=== PATIENT | male | born 1935 | race Caucasian/White ===

== ENCOUNTER 2017-01-06 10:16 | Inpatient (IN) | payer MEDICARE, OTHER ==
[~2017-01-06] VITALS: Ht 182.9 cm; Wt 61.2 kg
[2017-01-06] MEDS ORDERED: ESCI10TA PO (10:28)
[2017-01-06] MEDS ORDERED: MEMA10TA PO (10:28)
[2017-01-06] MEDS ORDERED: DONE10TA44 PO (10:28)
[2017-01-06] MEDS ORDERED: LEVO25TA9 PO (10:28)
[2017-01-06] MEDS ORDERED: CHOL100045 PO (10:28)
[2017-01-06] MEDS ORDERED: TAMS0.4C34 PO (10:28)
--- NOTE | 2017-01-06 11:29 | NUR ---
Pt being admitted to tele with belongings list complete at this time as well family member left ER at this time with medications and W/C and cane.
[2017-01-06 11:38] LABS: BASOPHILS % (AUTO) 0.6 % (0.0-2.0); EOSINOPHILS # (AUTO) 0.1 K/uL (0.0-0.7); EOSINOPHILS % (AUTO) 1.4 % (0.0-7.0); HEMATOCRIT 45.2 % (40-50); HEMOGLOBIN 14.8 G/DL (14.0-18.0); LYMPHOCYTES # (AUTO) 1.6 K/UL (0.8-4.8); LYMPHOCYTES % (AUTO) 27.2 % (20.5-51.5); MEAN CORPUSCULAR HEMOGLOBIN 32.9 UUG (27.0-31.0); MEAN CORPUSCULAR HGB CONC 33 g/dL (32.0-37.0); MEAN CORPUSCULAR VOLUME 100.7 FL (82.0-92.0); MONOCYTES # (AUTO) 0.3 K/UL (0.1-1.30); MONOCYTES % (AUTO) 5.5 % (0.0-11.0); NEUTROPHILS # (AUTO) 3.9 K/UL (1.8-8.9); NEUTROPHILS % (AUTO) 65.3 % (38.5-71.5); PLATELET COUNT (AUTO) 279 K/UL (150-450); RED BLOOD CELL COUNT(AUTO) 4.49 MIL/UL (4.7-6.1); WHITE BLOOD COUNT (AUTO) 5.9 K/UL (4.0-11.2)
[2017-01-06 11:50] LABS: CARBON DIOXIDE 26 mmol/L (21-32); CHLORIDE 103 mmol/L (98-107); GLUCOSE 88 mg/dL (74-106); POTASSIUM 3.7 mmol/L (3.5-5.1); UREA NITROGEN, BLOOD 16 mg/dL (7-18)
[2017-01-06 11:51] LABS: ETHANOL < 3 MG/DL (0-0)
[2017-01-06 11:56] LABS: ALANINE AMINOTRANSFERASE 17 U/L (16-63); ALKALINE PHOSPHATASE 87 U/L (50-136); ASPARTATE AMINOTRANSFERASE 20 U/L (15-37); BILIRUBIN,DIRECT 0.1 mg/dL (0.0-0.2); BILIRUBIN,TOTAL 0.7 mg/dL (0.2-1.0); TOTAL PROTEIN, SERUM 7.6 g/dL (6.4-8.2)
--- NOTE | 2017-01-06 12:15 | NUR ---
RECEIVED PATIENT FROM ED BY LEX 81 YEARS OLD MALE WITH DX OF AMS TO ROOM 222 PLACED INTO BED FIXED AND MADE COMFORTABLE PATIENT IS ALERT TO SELF WITH CONFUSSION AND DISORIENTATION UNABLE TO ANSWER QUESTIONS CALLED HIS SON ORI AND LEFT A MESSAGE.CALLED DR DOIN SALDAÑA AND LEFT A MESSAGE FOR ADMISSION ORDERS.
[2017-01-06 12:18] VITALS: BP 110/60
[2017-01-06 12:30] LABS: THYROID STIMULATING HORMONE 2.682 mIU/mL (0.358-3.740)
[2017-01-06 12:36] LABS: ACETAMINOPHEN < 2.0 ug/mL (10-30)
[2017-01-06] MEDS ORDERED: Z GUARD REMEDY PASTE 57 GM TUBE TOP PRN (14:00)
[2017-01-06] MEDS ORDERED: ONDANSETRON 4 MG/2 ML VIAL IV PRN (14:00)
[2017-01-06] MEDS ORDERED: ACETAMINOPHEN 325 MG TABLET PO PRN (14:00)
--- NOTE | 2017-01-06 14:00 | NUR ---
PATIENT HAS POOR SAFETY AWARENESS PATIENT MOVED CLOSER TO THE STATION ROOM 212
[2017-01-06 15:02] VITALS: BP 132/76
[2017-01-06] MEDS: IV NS 1000 ML 1,000 ML IV PRN (15:12)
--- NOTE | 2017-01-06 16:00 | NUR ---
2 D ECHO COMPLETED AND EF IS 50% WILL CONTINUE TO OBSERVE
--- NOTE | 2017-01-06 17:42 | NUR ---
PATIENT PULLED OUT HIS HEPLOCK AND TELEMETRY MAYI WILL ATTEMPT TO REINSERT.
--- NOTE | 2017-01-06 18:19 | NUR ---
HEPLOCK REINSERTED TO HIS LEFT FOREARM WITH ONE ATTEMPT AND SECURED AND WRAPPED WITH KIRLIX. PATIENT IS CONFUSED AND DISORIENTED AT THIS TIME BED ALARM IS ON WILL CONTINUE TO OBSERVE.
--- NOTE | 2017-01-06 18:31 | NUR ---
PATIENT SEEN AND EXAMINED BY DR CAO WITH ORDER TO DISCONTINUE TELEMETRY AND NOTED.
--- NOTE | 2017-01-06 19:30 | NUR ---
RECEIVED PATIENT LAYING COMFORTABLY IN BED. HOB ELEVATED. NO ACUTE DISTRESS NOTED. NO C/O PAIN. PATIENT IS ALERT TO SELF ONLY. IVF INFUSING ON THE LEFT FA # 20 NS AT 75 MLS/HR. SAFETY INITIATED. CALL LIGHT WITHIN REACH. WILL CONTINUE TO MONITOR.
[2017-01-06 19:58] VITALS: BP 98/58
[2017-01-06] MEDS: TAMSULOSIN HCL 0.4 MG CAP.SR.24H PO SCH (20:07)
[2017-01-06] MEDS: MEMANTINE HCL 10 MG TABLET PO SCH (20:07)
[2017-01-06] MEDS: Z GUARD REMEDY PASTE 57 GM TUBE TOP SCH (20:07)
[2017-01-07 04:00] VITALS: BP 108/59
--- NOTE | 2017-01-07 05:44 | NUR ---
no changes t/o shift. no acute distress noted. patient remains alert to self only. left forearm ivf infusing at NS at 75 mls/hr. diaper changed 3 times, zguard applied. noted sacral redness and non blanchable heels. safety and comfort measures maintained t/o shift. all meds given as ordered. vital signs stable. all needs met.
[2017-01-07] MEDS: LEVOTHYROXINE SODIUM 25 MCG TABLET PO SCH (06:00)
[2017-01-07] MEDS: IV NS 1000 ML 1,000 ML IV PRN ×2 (06:20→20:04)
[2017-01-07 07:41] LABS: BASOPHILS % (AUTO) 1.1 % (0.0-2.0); EOSINOPHILS # (AUTO) 0.1 K/uL (0.0-0.7); EOSINOPHILS % (AUTO) 2.3 % (0.0-7.0); HEMATOCRIT 39.3 % (36.7-47.1); HEMOGLOBIN 13.3 g/dL (12.5-16.3); LYMPHOCYTES # (AUTO) 1.7 K/uL (20.0-40.0); MEAN CORPUSCULAR HEMOGLOBIN 34.2 uug (23.8-33.4); MEAN CORPUSCULAR HGB CONC 34 g/dL (32.5-36.3); MEAN CORPUSCULAR VOLUME 101.1 fL (73.0-96.2); MONOCYTES # (AUTO) 0.3 K/uL (2.0-10.0); MONOCYTES % (AUTO) 7.5 % (0.0-11.0); NEUTROPHILS # (AUTO) 2.2 K/uL (1.8-8.9); NEUTROPHILS % (AUTO) 50.1 % (38.5-71.5); PLATELET COUNT (AUTO) 251 K/uL (152-348); RED BLOOD CELL COUNT(AUTO) 3.89 MIL/uL (4.06-5.63)
--- NOTE | 2017-01-07 07:45 | NUR ---
PATIENT RECEIVED IN BED AWAKE ALERT AWARE BUT IS DISORIENTED TO EVENTS AND PLACE.VERBALLY RESPONDS WHEN SPOKEN TO BUT MOSTLY [place].VERY QUIET ALL NEEDS MUST BE ANTICIPATED AND SATISFIED.TOTALLY DEPENDENT FOR NURSES FOR ALL ADL.REMAIN ON IVF ORDERED WITH NO S/S OF INFILTERATION.BED ALARM IS IN NSE AT THIS TIME.MADE COMFORTABLE.
[2017-01-07 08:16] LABS: THYROID STIMULATING HORMONE 2.955 mIU/mL (0.358-3.740)
[2017-01-07 08:21] LABS: WHITE BLOOD COUNT (AUTO) 4.3 K/uL (3.6-10.2)
[2017-01-07] MEDS: Z GUARD REMEDY PASTE 57 GM TUBE TOP SCH ×2 (08:29→20:04)
[2017-01-07] MEDS: ESCITALOPRAM OXALATE 10 MG TABLET PO SCH (08:29)
[2017-01-07] MEDS: MEMANTINE HCL 10 MG TABLET PO SCH ×2 (08:29→20:03)
[2017-01-07] MEDS: CHOLECALCIFEROL 1,000 UNIT TABLET PO SCH (08:29)
[2017-01-07] MEDS: DONEPEZIL 10 MG TABLET PO SCH (08:29)
[2017-01-07 08:41] LABS: CHLORIDE 106 mmol/L (98-107); CHOLESTEROL 153 mg/dL (<200); GLUCOSE 71 mg/dL (74-106); HDL CHOLESTEROL 31 mg/dL (40-60); MAGNESIUM 2.1 mg/dL (1.8-2.4); PHOSPHOROUS 3.1 mg/dL (2.5-4.9); POTASSIUM 3.6 mmol/L (3.5-5.1); TRIGLYCERIDES 86 MG/DL (30-150); UREA NITROGEN, BLOOD 16 mg/dL (7-18)
[2017-01-07 08:48] LABS: CARBON DIOXIDE 28 mmol/L (21-32)
[2017-01-07] MEDS ORDERED: MEMANTINE HCL 10 MG TABLET PO SCH (09:00)
--- NOTE | 2017-01-07 11:00 | NUR ---
AMBULATED WITH THE FRONT WHEEL WALKER WITH THE PHYSICAL THERAPY IN THE HALLWAY AND TOLERATED FAIRLY WELL
[2017-01-07 11:02] VITALS: BP 104/54
--- NOTE | 2017-01-07 13:00 | NUR ---
PATIENT SEEN AND EXAMINED BY DR MOYA WITH NO NEW ORDERS AT THIS TIME.
[2017-01-07 15:37] VITALS: BP 98/56
--- NOTE | 2017-01-07 16:18 | NUR ---
PATIENT IS FEEDING SELF TOLERATING DIET ORDERED WITH NO COUGHING WILL CONTINUE ON SAME DIET ORDERED.
--- NOTE | 2017-01-07 18:37 | NUR ---
RESTING GOOD APPETITE NO DISTRESS AT THIS TIME
--- NOTE | 2017-01-07 19:30 | NUR ---
Pt in room alert, awake, confused but oriented to self. Speaking only [place] at this time. No s/s of acute distress or weakness. Speech is clear with facial symmetry equal. Denies any headaches, pain, or discomfort at this time. Call light placed within reach. Continue to monitor. BP noted 94/50. Pulse 71.
[2017-01-07 20:00] VITALS: BP 94/50
[2017-01-07] MEDS: TAMSULOSIN HCL 0.4 MG CAP.SR.24H PO SCH (20:03)
[2017-01-07 23:16] VITALS: BP 139/62
[2017-01-08] MEDS: CHOLECALCIFEROL 1,000 UNIT TABLET PO SCH (08:30)
[2017-01-08] MEDS: MEMANTINE HCL 10 MG TABLET PO SCH ×2 (08:30→20:12)
[2017-01-08] MEDS: DONEPEZIL 10 MG TABLET PO SCH (08:30)
[2017-01-08] MEDS: LEVOTHYROXINE SODIUM 25 MCG TABLET PO SCH (08:30)
[2017-01-08] MEDS: Z GUARD REMEDY PASTE 57 GM TUBE TOP SCH ×2 (08:30→20:19)
[2017-01-08] MEDS: ESCITALOPRAM OXALATE 10 MG TABLET PO SCH (08:30)
--- NOTE | 2017-01-08 08:30 | NUR ---
AWAKE CONFUSED FORGETFUL BUT COOPERATE AND FOLLOW SIMPLE DIRECTION WELL ON ASPIRATION /FALL PRECAUTION BED ALARM ON AND CALL LIGHT IN REACH CONTINUE IVF
--- NOTE | 2017-01-08 10:00 | NUR ---
STABLE FOR NEURO SIGNS ,SHEPHERD ONLY WEAKNESS CLOSED OBSERVATION
[2017-01-08] MEDS: IV NS 1000 ML 1,000 ML IV PRN ×2 (10:18→23:47)
[2017-01-08 11:14] VITALS: BP 105/66
[2017-01-08 15:32] VITALS: BP 117/63
--- NOTE | 2017-01-08 18:00 | NUR ---
HEMODYNAMIC STATUS STABLE NO ACUTE DISTRESS SAFETY MEASURE PROVIDED CALL LIGHT IN REACH AND BED ALARM ON
--- NOTE | 2017-01-08 19:30 | NUR ---
Pt alert awake in bed with no s/s of acute distress. Speech clear with facial symmetry equal. Pt denies any headaches, dizziness, or increased weakness. Bilateral hand grasp 5/5. Able to follow simple commands without difficulty. HOB elevated 20 degrees. Call light placed within reach and bed alarm on. Continue to monitor. Requested pain medications.
[2017-01-08 19:48] LABS: *BILIRUBIN,URIN NEGATIVE (NEGATIVE); *BLOOD, URINE NEGATIVE (NEGATIVE); *CLARITY,URINE CLEAR (CLEAR); *COLOR,URINE YELLOW (YELLOW); *KETONES,URINE NEGATIVE (NEGATIVE); *PROTEIN,URINE NEGATIVE (NEGATIVE); LEUKOCYTE ESTERASE ,URINE NEGATIVE (NEGATIVE); NITRITE, URINE NEGATIVE (NEGATIVE); UGLUCOSE NEGATIVE (NEGATIVE)
[2017-01-08 20:00] VITALS: BP 93/53
[2017-01-08] MEDS: TAMSULOSIN HCL 0.4 MG CAP.SR.24H PO SCH (20:12)
[2017-01-08] MEDS ORDERED: ATORVASTATIN 10 MG TABLET PO SCH (21:00)
[2017-01-08 21:09] LABS: BACTERIA,URINE FEW /HPF (NONE SEEN); SQUAMOUS EPITHELIAL CELL,UR FEW /HPF (NONE SEEN)
[2017-01-08 21:10] LABS: MUCUS,URINE MODERATE /LPF (0-FEW)
--- NOTE | 2017-01-09 01:00 | NUR ---
Pt asleep at this time. No acute distress. Pt noted with BM last night. Continue to monitor.
[2017-01-09 05:30] VITALS: BP 128/68
--- NOTE | 2017-01-09 06:00 | NUR ---
Pt alert awake in bed. Facial symmetry equal with bilateral hand telecommunications analyst 5/5. Denies any headaches, dizziness, or discomfort. BP 128/68. No acute distress noted. Side rails up and encouraged to use call light for assistance. Continue to monitor.
[2017-01-09] MEDS: LEVOTHYROXINE SODIUM 25 MCG TABLET PO SCH (06:02)
[2017-01-09 07:33] LABS: CARBON DIOXIDE 27 mmol/L (21-32); CHLORIDE 106 mmol/L (98-107); CREATININE 0.7 mg/dL (0.6-1.3); GLUCOSE 78 mg/dL (74-106); MAGNESIUM 1.9 mg/dL (1.8-2.4); PHOSPHOROUS 2.4 mg/dL (2.5-4.9); POTASSIUM 3.8 mmol/L (3.5-5.1); UREA NITROGEN, BLOOD 10 mg/dL (7-18)
--- NOTE | 2017-01-09 07:40 | NUR ---
Pt asleep at this time. No acute distress. Continue to monitor.call light with in reach
[2017-01-09 07:50] LABS: BASOPHILS % (AUTO) 0.8 % (0.0-2.0); EOSINOPHILS # (AUTO) 0.1 K/uL (0.0-0.7); EOSINOPHILS % (AUTO) 2.4 % (0.0-7.0); HEMATOCRIT 38.6 % (36.7-47.1); HEMOGLOBIN 13.8 g/dL (12.5-16.3); LYMPHOCYTES # (AUTO) 1.8 K/uL (20.0-40.0); LYMPHOCYTES % (AUTO) 33.1 % (20.5-51.5); MEAN CORPUSCULAR HEMOGLOBIN 35.5 uug (23.8-33.4); MEAN CORPUSCULAR HGB CONC 36 g/dL (32.5-36.3); MEAN CORPUSCULAR VOLUME 99.6 fL (73.0-96.2); MONOCYTES # (AUTO) 0.4 K/uL (2.0-10.0); MONOCYTES % (AUTO) 7.2 % (0.0-11.0); NEUTROPHILS # (AUTO) 3.1 K/uL (1.8-8.9); NEUTROPHILS % (AUTO) 56.5 % (38.5-71.5); PLATELET COUNT (AUTO) 248 K/uL (152-348); RED BLOOD CELL COUNT(AUTO) 3.88 MIL/uL (4.06-5.63)
[2017-01-09 08:04] LABS: WHITE BLOOD COUNT (AUTO) 5.5 K/uL (3.6-10.2)
[2017-01-09] MEDS: MEMANTINE HCL 10 MG TABLET PO SCH (08:04)
[2017-01-09] MEDS: ESCITALOPRAM OXALATE 10 MG TABLET PO SCH (08:04)
[2017-01-09] MEDS: DONEPEZIL 10 MG TABLET PO SCH (08:04)
[2017-01-09] MEDS: CHOLECALCIFEROL 1,000 UNIT TABLET PO SCH (08:04)
[2017-01-09] MEDS: Z GUARD REMEDY PASTE 57 GM TUBE TOP SCH (09:13)
[2017-01-09 11:05] VITALS: BP 99/48
[2017-01-09 15:06] VITALS: BP 111/71
[2017-01-09] MEDS ORDERED: NEUTRA PHOS PACKET PO ONE (15:30)
--- NOTE | 2017-01-09 17:47 | NUR ---
D/C ORDERS RECEIVED NOTED AND CARRIED OUT.D/C HEPLOCK PER MD ORDERS.PT LEFT THE FACILITY VIA AMBULANCES IN STABLE CONDITION
== END 2017-01-09 18:00 | DRG 814 ==
LOC: ER 10:16 → TELE 11:59 → MED 19:29
PROVIDERS: ADMIT Nurse Practitioner Acute Care; ATTEND Nurse Practitioner Acute Care
DX: D18.1 Lymphangioma, any site (principal); I62.00 Nontraumatic subdural hemorrhage, unspecified; E43 Unspecified severe protein-calorie malnutrition; F03.91 Unspecified dementia, unspecified severity, with behavioral disturbance; G91.2 (Idiopathic) normal pressure hydrocephalus; M48.02 Spinal stenosis, cervical region; Z68.1 Body mass index [BMI] 19.9 or less, adult; Z79.899 Other long term (current) drug therapy; E03.9 Hypothyroidism, unspecified; N40.0 Benign prostatic hyperplasia without lower urinary tract symptoms
CPT/HCPCS: 36415; 70030-TC; 70450; 71010; 72125; 82746; 83605; 83735; 84100; 84443; 85025; 85730; 87040; 93005; 93307; 97116; 97530; G0480; G0480-TC; J7030